=== PATIENT | female | born 1960 | race African-American/Black ===

== ENCOUNTER 2017-05-22 07:39 | Day surgery (SDC) | payer MEDICAID ==
[~2017-05-22] VITALS: Ht 170.2 cm; Wt 48.1 kg
[~2017-05-22 07:39] MED LIST: IBUP-1653 PO
[2017-05-22] MEDS ORDERED: BALANCED SALT IRRIG SOLN COMB1 500ML OP ONE (07:45)
[2017-05-22] MEDS ORDERED: PHENYLEPHRINE HCL 10% OPHTH DROPS 5ML LEFTEYE SCH (08:20)
[2017-05-22] MEDS ORDERED: TROPICAMIDE 1% OPHTH DROPS 15ML LEFTEYE SCH (08:20)
[2017-05-22] MEDS ORDERED: CYCLOPENTOLATE HCL 1% OPHTH DROPS 2ML LEFTEYE SCH (08:20)
[2017-05-22] MEDS ORDERED: HYALURONATE SODIUM 14 MG/ML 0.85ML SYRINGE IO ONE ×2 (08:22→15:41)
[2017-05-22 09:36] LABS: BASOPHILS % 1.2 % (0.0-2.0); EOSINOPHILS % 0.4 % (0.0-5.0); HEMATOCRIT. 29.4 % (36.0-48.0); HEMOGLOBIN. 9.3 g/dL (12.0-16.0); LYMPHOCYTES % 37.7 % (20.0-50.0); MEAN CORPUSCULAR HEMOGLOBIN 31.1 pg (28.0-32.0); MEAN CORPUSCULAR VOLUME 98.4 fL (81.0-99.0); MEAN PLATELET VOLUME 9.6 fl (7.4-10.4); MONOCYTES % 5.5 % (2.0-8.0); NEUTROPHILS % 55.2 % (40.0-76.0); RED BLOOD CELL COUNT 2.99 mill/uL (4.2-5.4); RED CELL DISTRIBUTION WIDTH 16.8 % (11.6-14.6)
[2017-05-22 09:50] LABS: CARBON DIOXIDE 22 mEq/L (21-32); CHLORIDE 114 mEq/L (98-107)
[2017-05-22 10:02] LABS: PLATELET 45 x1000/uL (130-400); PLATELET ESTIMATE DECREASED
[2017-05-22 10:46] LABS: HEMOGLOBIN. 8.9 g/dL (12.0-16.0); MEAN CORPUSCULAR HEMOGLOBIN 31.3 pg (28.0-32.0); MEAN CORPUSCULAR VOLUME 98.1 fL (81.0-99.0); RED BLOOD CELL COUNT 2.85 mill/uL (4.2-5.4); RED CELL DISTRIBUTION WIDTH 16.7 % (11.6-14.6)
[2017-05-22 10:48] LABS: BASOPHILS % 1.4 % (0.0-2.0); EOSINOPHILS % 0.3 % (0.0-5.0); LYMPHOCYTES % 39.1 % (20.0-50.0); MEAN PLATELET VOLUME 9.3 fl (7.4-10.4); MONOCYTES % 6.3 % (2.0-8.0); NEUTROPHILS % 52.9 % (40.0-76.0); PLATELET 43 x1000/uL (130-400)
[2017-05-22] MEDS ORDERED: LACTATED RINGERS 1,000 ML IV SCH (10:50)
[2017-05-22] MEDS ORDERED: MIDAZOLAM HCL 2 MG/2 ML VIAL ONE (13:33)
[2017-05-22] MEDS ORDERED: DIPHENHYDRAMINE 50MG/ML VIAL ONE (13:33)
[2017-05-22] MEDS ORDERED: FENTANYL CITRATE/PF 50MCG/ML 2ML VIAL ONE (13:33)
[2017-05-22] MEDS ORDERED: TRYPAN BLUE 0.5 ML DISP.SYRIN IO ONE (13:58)
[2017-05-22] MEDS ORDERED: BALANCED SALT IRRIG SOLN 15ML ONE (14:49)
[2017-05-22] MEDS ORDERED: ACETYLCHOLINE CHLORIDE INTRAOCULAR SOLUTION 1:100 ELECTROLYTE DILUENT IO ONE (14:49)
[2017-05-22] MEDS ORDERED: CIPROFLOXACIN 0.3% OPHTH SOLN 2.5ML ONE (14:49)
[2017-05-22] MEDS ORDERED: LIDOCAINE HCL/PF 2% 20 MG/ML 10ML VIAL ONE (14:49)
[2017-05-22] MEDS ORDERED: NEO/POLYMYX B SULF/DEXAMETH OPHTH OINT 3.5GM ONE (14:49)
[2017-05-22] MEDS ORDERED: TETRACAINE 0.5% OPHTH DROPS 4ML ONE (14:49)
[2017-05-22] MEDS ORDERED: PREDNISOLONE ACETATE 1% OPHTH DROPS 1ML ONE (14:49)
== END 2017-05-22 16:00 | disposition home or self-care (01) ==
LOC: OR 07:39
PROVIDERS: ATTEND Ophthalmology
DX: H25.22 Age-related cataract, morgagnian type, left eye (principal); I10 Essential (primary) hypertension; E78.5 Hyperlipidemia, unspecified; D69.6 Thrombocytopenia, unspecified; Z82.49 Family history of ischemic heart disease and other diseases of the circulatory system; Z98.890 Other specified postprocedural states; Z79.899 Other long term (current) drug therapy; Z86.2 Personal history of diseases of the blood and blood-forming organs and certain disorders involving the immune mechanism
CPT/HCPCS: 36415; 66984; 80048; 85025; 86850; 86900; 86901; 93005; J1200; J2250; J3010; J3490; J7030; P9034; Q9957; V2632